=== PATIENT | female | born 1955 | race Caucasian/White ===

== ENCOUNTER 2018-07-18 09:34 | Outpatient (CLI) | payer OTHER, SELFPAY ==
[2018-07-18 09:44] VITALS: BP 128/84; PULSE 77; RESP 18; TEMP 36.5; O2SAT 99
[2018-07-19 13:41] VITALS: BP 146/84; PULSE 72; RESP 18; TEMP 36.5; O2SAT 100
== END 2018-07-18 09:54 ==
PROVIDERS: PCP Family Medicine; Visit Provider Anesthesiology Pain Medicine
DX: M54.16 Radiculopathy, lumbar region (principal); Z53.20 Procedure and treatment not carried out because of patient's decision for unspecified reasons

== ENCOUNTER 2018-07-19 13:39 | Outpatient (CLI) | payer OTHER, SELFPAY ==
--- NOTE | 2018-07-19 06:00 | DI.RAD_ITS ---
SYMPTOMS/DIAGNOSIS: LUMBAR EPIDURAL STEROID INJECTION PAIN CLINIC LUMBAR SPINE: Fluoroscopy Time: 26.3 sec Fluoroscopy was utilized by Dr. Holbrook during the performance of a lumbar epidural steroid injection. Please refer to the procedure report for complete details.
[2018-07-19 13:50] VITALS: BP 146/84; PULSE 72; RESP 18; TEMP 36.5; O2SAT 100
[2018-07-19] MEDS: Omnipaque 240 MG/ML 50 ML BTL IJ (14:42)
[2018-07-19] MEDS: methylPREDNISolone ACETATE 40 MG/ML VIAL IJ (14:42)
[2018-07-19 14:43] VITALS: BP 164/87; PULSE 73; RESP 16; O2SAT 100
--- NOTE | 2018-07-31 15:07 | PDOC.PAIN_ITS ---
Pain Clinic Procedure Note Current Active Problems Problem Status Onset Lumbar radicular syndrome Acute EPIDURAL STEROID WITH CATHETER INJECTION PROCEDURE NOTE COMMENTS: Patient has back and left lower extremity pain to her foot. 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 She is status post discectomy 1985. Previous surgery will proceed with caudal injection. DARNELL KOWALSKI has been referred to the [facility] for lumbar epidural steroid injection. Patient was greeted by the nurse who verified patients name and . Patient was then taken to the fluoroscopy suite. Patient was interviewed and the medical record reviewed. There were no medical , pharmacologic, radiographic, or other structural contraindications to attempting fluoroscopically guided lumbar epidural steroid injection. Risks and expected side effects as well as potential benefits of the procedure were reviewed and voiced concerns addressed. The patient consent form was signed and witnessed. Standard time-out procedure was performed. Patient was placed in the prone position on the fluoroscopy table and automated blood pressure cuff and pulse oximeter applied. The skin entry point for entering/approaching the epidural space by a {sacral hiatus} and marked. Following thorough chlorhexadine preparation of the skin and draping and 1% lidocaine infiltration of the skin entry point and subcutaneous tissues, a 17 gauge Touhy needle was placed under fluoroscopic guidance and with loss of resistance technique into the epidural space. Needle tip placement and depth were aided and confirmed by fluoroscopy. There was no paresthesia or return of blood or CSF through the needle. An Arrow cath was thread to the {left L5-S1} and 1 cc's of Omnipaque 240 was injected with clear epidural spread confirmed with fluoroscopy. 80mg depomedrol was injected. There was not any unusual discomfort expressed. Vital signs were stable throughout the procedure and were as recorded in nursing records. Follow up plans and appointments were discussed.Post procedure instruction was given as documented in nursing records and having met discharge criteria and was discharged from the [facility]. COMMENTS: Patient will follow-up as needed. Consider repeat or consider left transforaminal at L4-5 and possibly at L5-S1 at the same time.
== END 2018-07-19 13:59 ==
PROVIDERS: PCP Family Medicine; Visit Provider Anesthesiology Pain Medicine
DX: M54.16 Radiculopathy, lumbar region (principal)
CPT/HCPCS: 62323; 72100; J1030; Q9967